=== PATIENT | male | born 1930 | race Caucasian/White ===

== ENCOUNTER → 2016-11-04 | Outpatient (CLI) | payer MEDICARE, OTHER ==
[2016-11-04 11:06] LABS: BASOPHILS % (AUTO) 1 % (0-2); BILIRUBIN,URINE Negative (Negative); CLARITY,URINE Clear; COLOR,URINE Yellow; EOSINOPHILS # (AUTO) 0.1 10^3uL; EOSINOPHILS % (AUTO) 2 % (0-4); GLUCOSE, URINE (UA) Negative (Negative); LEUKOCYTE ESTERASE ,URINE Negative (Negative); LYMPHOCYTES # (AUTO) 1.6 X10^3; MEAN CORPUSCULAR HEMOGLOBIN 30.7 PG (26.0-34.0); MEAN CORPUSCULAR HGB CONC 34.3 g/dL (31.0-37.0); MEAN CORPUSCULAR VOLUME 89 FL (80-100); MEAN PLATELET VOLUME 9.6 FL (6.0-9.5); MONOCYTES # (AUTO) 1.1 X10^3; MONOCYTES % (AUTO) 14 % (3-11); NEUTROPHILS % (AUTO) 63 % (51-67); PH,URINE 6.5 (5.0 - 8.0); PLATELET COUNT 251 10^3uL (150-450); UROBILINOGEN,URINE 0.2 mg/dL (0.2-1.0); WHITE BLOOD COUNT 7.88 10^3uL (4.0-11.0)
[2016-11-04 11:36] LABS: ERYTHROCYTE SEDIMENTATION RT* 11 mm/hr (0-19); RBC,URINE 0-2 /HPF; URINE CENTRIFUGED VOLUME 12 mL
[2016-11-04 11:56] LABS: ALBUMIN 4.3 g/dL (3.4-5.0); ANION GAP 14.6 MEQ/L (3-15); CALCULATED IONIZED CALCIUM 4.3 mg/dL (3.8-4.6); TOTAL PROTEIN 7.4 g/dL (6.4-8.5)
--- NOTE | 2016-11-04 13:22 | Diagnostic Imaging Report ---
INDICATION: Dyspnea, physical exam. COMPARISON STUDY: Chest from August 25, 2014. FINDINGS: Frontal and lateral views of the chest again demonstrate emphysematous changes. Lungs are clear. The heart, mediastinum and pulmonary vascularity are normal. IMPRESSION: Stable COPD. Dictated by: Dictated on workstation # [id number]
[2016-11-04 22:23] LABS: VITAMIN B 12 870 pg/mL (213-816)
== END ==
LOC: RAD 10:27
PROVIDERS: ATTEND Family Medicine
DX: I49.8 Other specified cardiac arrhythmias (principal); R06.00 Dyspnea, unspecified; R79.89 Other specified abnormal findings of blood chemistry; D50.8 Other iron deficiency anemias; M35.3 Polymyalgia rheumatica; E13.65 Other specified diabetes mellitus with hyperglycemia; E03.4 Atrophy of thyroid (acquired); M81.0 Age-related osteoporosis without current pathological fracture; D51.0 Vitamin B12 deficiency anemia due to intrinsic factor deficiency
CPT/HCPCS: 36415; 71020; 80053; 81003; 81015; 82306; 82607; 82728; 83036; 84436; 84443; 85025; 85652; 93005